=== PATIENT | female | born 1985 ===

== ENCOUNTER 2018-01-08 17:48 | Inpatient (IN) | payer OTHER ==
[~2018-01-08] VITALS: Ht 167.6 cm; Wt 2.3 kg
[2018-01-08] MEDS ORDERED: PRENATAL TABLE1 EAC1 PO (18:42)
[2018-01-12] MEDS ORDERED: NAPROXEN500 MG PO (13:43)
== END 2018-01-12 14:51 | DRG 765 ==
LOC: LDR 17:48 → O/R 01-09 16:28 → OB/GYN 01-09 18:16
PROVIDERS: Obstetrics & Gynecology
PROC: 4A1HXCZ Monitoring of Products of Conception, Cardiac Rate, External Approach (ICD-10-PCS; 2018-01-08)
PROC: 3E033VJ Introduction of Other Hormone into Peripheral Vein, Percutaneous Approach (ICD-10-PCS; 2018-01-09)
PROC: 4A033R1 Measurement of Arterial Saturation, Peripheral, Percutaneous Approach (ICD-10-PCS; 2018-01-09)
PROC: 10D00Z1 Extraction of Products of Conception, Low, Open Approach (ICD-10-PCS; principal; 2018-01-09 16:00)
DX: O13.3 Gestational [pregnancy-induced] hypertension without significant proteinuria, third trimester (principal); O60.14X0 Preterm labor third trimester with preterm delivery third trimester, not applicable or unspecified; O75.82 Onset (spontaneous) of labor after 37 completed weeks of gestation but before 39 completed weeks gestation, with delivery by (planned) cesarean section; Z3A.36 36 weeks gestation of pregnancy; Z37.0 Single live birth